=== PATIENT | female | born 1975 | race American Indian/Alaskan Native ===

== ENCOUNTER 2018-04-07 17:16 | Emergency (ER) | payer OTHER ==
[2018-04-07 17:16] VITALS: BMI 44.1
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
[2018-04-07 19:23] VITALS: BP 132/86; PULSE 78; RESP 18; TEMP 98.4; O2SAT 96
== END 2018-04-07 19:35 | disposition home or self-care (01) ==
LOC: C.ER 17:16
DX: S09.90XA Unspecified injury of head, initial encounter (principal); S16.1XXA Strain of muscle, fascia and tendon at neck level, initial encounter; V49.49XA Driver injured in collision with other motor vehicles in traffic accident, initial encounter; Y92.414 Local residential or business street as the place of occurrence of the external cause